=== PATIENT | female | born 1995 | race Hispanic/Latino ===

== ENCOUNTER 2022-05-22 09:08 | Inpatient (IN) | payer OTHER ==
[~2022-05-22] VITALS: Ht 154.9 cm; Wt 78.7 kg
[2022-05-22 09:25] LABS: BASOPHILS % (AUTO) 0.3 % (0.0-5.0); EOSINOPHILS % (AUTO) 0.4 % (0.0-8.0); HEMATOCRIT 35.6 % (36-48); LYMPHOCYTES % (AUTO) 21.8 % (21.0-51.0); MEAN CORPUSCULAR HEMOGLOBIN 31.9 pg (27.0-33.0); MEAN CORPUSCULAR HGB CONC 34.3 g/dL (32.0-36.0); MEAN CORPUSCULAR VOLUME 93.2 fL (79-99); MONOCYTES % (AUTO) 3.5 % (3.0-13.0); NEUTROPHILS % (AUTO) 73.6 % (40.0-77.0); PLATELET COUNT (AUTO) 254 K/uL (130-400); RED BLOOD CELL COUNT(AUTO) 3.82 MIL/uL (4.00-5.50); RED CELL DISTRIBUTION WIDTH 12.6 % (11.0-15.5); WHITE BLOOD COUNT (AUTO) 11.4 K/uL (4.8-10.8)
[2022-05-22 09:38] LABS: ALBUMIN 3.8 g/dL (3.5-5.0); BILIRUBIN,TOTAL 0.2 mg/dL (0.2-1.0); CREATININE 0.7 mg/dL (0.5-1.5); POTASSIUM 3.8 mmol/L (3.5-5.1); TOTAL PROTEIN, SERUM 8.2 g/dL (6.0-8.3)
[2022-05-22] MEDS ORDERED: KETOROLAC 30MG VIAL (30MG/ML) IVP ONE (10:00)
[2022-05-22] MEDS ORDERED: ZOSYN 3.375GM +NS 50ML IV ONE (10:30)
[2022-05-22] MEDS ORDERED: ONDANSETRON 4MG INJ IVP PRN (11:00)
[2022-05-22] MEDS ORDERED: KETOROLAC 15MG/ML VIAL (15MG/ML) IM PRN (11:00)
[2022-05-22] MEDS ORDERED: ACETAMINOPHEN 325 MG TAB PO PRN (11:00)
[2022-05-22] MEDS ORDERED: HYDROMORPHONE 0.5 MG SYG (0.5MG/0.5ML) IVP PRN (11:00)
[2022-05-22 11:15] LABS: HEMOGLOBIN A1C 5.8 % (4.0-6.0)
[2022-05-22] MEDS: PANTOPRAZOLE 40 MG/VIAL IVP SCH (11:57)
[2022-05-22 12:00] LABS: INR 0.94 (0.85-1.15); PROTHROMBIN TIME 10.3 SEC (9.6-11.6)
[2022-05-22 12:01] LABS: PARTIAL THROMBOPLASTIN TIME 26.1 SEC (26.3-35.5)
[2022-05-22] MEDS ORDERED: ZOSYN 3.375GM +NS 50ML IV SCH (14:00)
[2022-05-22 14:06] VITALS: BP 125/75
[2022-05-22] MEDS: LACTATED RINGERS 1000ML 1,000 ML IV SCH (15:45)
[2022-05-22 16:33] VITALS: BP 113/63
[2022-05-22] MEDS: ZOSYN 3.375GM +NS 50ML IV SCH (18:51)
[2022-05-22 19:16] VITALS: BP 117/73
[2022-05-22 21:55] LABS: APPEARANCE,URINE CLEAR (CLEAR); BILIRUBIN,URINE NEGATIVE (NEGATIVE); COLOR,URINE YELLOW (YELLOW); GLUCOSE, URINE (UA) NEGATIVE (NEGATIVE); KETONES,URINE NEGATIVE (NEGATIVE); LEUKOCYTE ESTERASE ,URINE NEGATIVE (NEGATIVE); NITRATE,URINE NEGATIVE (NEGATIVE); OCCULT BLOOD,URINE NEGATIVE (NEGATIVE); PROTEIN,URINE NEGATIVE (NEGATIVE)
[2022-05-22 21:59] LABS: HCG,QUAL RESULT NEGATIVE (NEGATIVE)
[2022-05-22 22:02] LABS: BACTERIA,URINE Few /HPF (None Seen); RBC,URINE 0-1 /HPF (0-1); WBC,URINE 0-1 /HPF (0-1)
[2022-05-22 22:03] LABS: AMORPHOUS SEDIMENT,UR Few /LPF (None Seen); SQUAMOUS EPITHELIAL CELL,UR Moderate /HPF (0-2)
[2022-05-22 23:06] VITALS: BP 112/57
[2022-05-23] VITALS (29 sets, daily range): BP systolic 87–141; BP diastolic 54–79
[2022-05-23] MEDS: ZOSYN 3.375GM +NS 50ML IV SCH ×4 (02:57→22:37)
[2022-05-23] MEDS: LACTATED RINGERS 1000ML 1,000 ML IV SCH ×2 (02:58→22:38)
[2022-05-23] MEDS: KETOROLAC 15MG/ML VIAL (15MG/ML) IV PRN (03:06)
[2022-05-23 05:32] LABS: BASOPHILS % (AUTO) 0.3 % (0.0-5.0); HEMATOCRIT 34.7 % (36-48); LYMPHOCYTES % (AUTO) 32.6 % (21.0-51.0); MEAN CORPUSCULAR HGB CONC 32.9 g/dL (32.0-36.0); MEAN CORPUSCULAR VOLUME 94.3 fL (79-99); MONOCYTES % (AUTO) 6.2 % (3.0-13.0); NEUTROPHILS % (AUTO) 59.5 % (40.0-77.0); PLATELET COUNT (AUTO) 233 K/uL (130-400); RED BLOOD CELL COUNT(AUTO) 3.68 MIL/uL (4.00-5.50); RED CELL DISTRIBUTION WIDTH 12.8 % (11.0-15.5); WHITE BLOOD COUNT (AUTO) 9.9 K/uL (4.8-10.8)
[2022-05-23 06:02] LABS: ALBUMIN 3.2 g/dL (3.5-5.0); BILIRUBIN,TOTAL 0.6 mg/dL (0.2-1.0); CREATININE 0.7 mg/dL (0.5-1.5); MAGNESIUM 1.6 mg/dL (1.80-2.40); POTASSIUM 3.9 mmol/L (3.5-5.1); TOTAL PROTEIN, SERUM 7.2 g/dL (6.0-8.3)
[2022-05-23] MEDS: PANTOPRAZOLE 40 MG/VIAL IVP SCH (09:28)
[2022-05-23] MEDS ORDERED: BUPIVACAINE/PF 0.5% 30ML VIAL ONE (12:28)
[2022-05-23] MEDS ORDERED: DEXAMETHASONE SOD PHOSPHATE 10MG/ML 1ML VIAL ONE (12:30)
[2022-05-23] MEDS ORDERED: SUCCINYLCHOLINE 200MG/10ML SYR ONE (12:30)
[2022-05-23] MEDS ORDERED: LIDOCAINE PF 100MG/5ML (2%) SYRINGE 5ML ONE (12:30)
[2022-05-23] MEDS ORDERED: MIDAZOLAM HCL 1 MG/ML 2ML VIAL ONE (12:31)
[2022-05-23] MEDS ORDERED: ROCURONIUM 10MG/1ML SYR 10 MG/ML ML ONE (12:31)
[2022-05-23] MEDS ORDERED: ONDANSETRON 4MG INJ ONE ×2 (12:31→13:22)
[2022-05-23] MEDS ORDERED: PROPOFOL 10 MG/ML 20ML VIAL IV ONE (12:31)
[2022-05-23] MEDS ORDERED: NEOSTIGMINE 5MG/5ML SYR IV ONE (12:31)
[2022-05-23] MEDS ORDERED: GLYCOPYRROLATE 1 MG/5 ML SYRINGE ONE (12:31)
[2022-05-23] MEDS ORDERED: FENTANYL CITRATE PF 50 MCG/1 ML 2ML VIAL ONE ×2 (12:31→12:57)
[2022-05-23] MEDS ORDERED: BUPIVACAINE/PF 0.5% 30ML VIAL INJ ONE (12:41)
[2022-05-23] MEDS ORDERED: ZOSYN 3.375GM +NS 50ML IV ONE (12:42)
[2022-05-23] MEDS ORDERED: MEPERIDINE-PF 25 MG/ML SYG ONE (13:48)
[2022-05-23] MEDS ORDERED: KETOROLAC 30MG VIAL (30MG/ML) ONE (14:21)
[2022-05-23] MEDS ORDERED: KETOROLAC 30MG VIAL (30MG/ML) IVP PRN (20:30)
[2022-05-23] MEDS ORDERED: SIMETHICONE 80 MG TAB.CHEW ONE (21:18)
[2022-05-23] MEDS ORDERED: MAG/ALUM/SIMETH 30 ML UDCUP ONE (21:21)
[2022-05-23] MEDS ORDERED: MAG/ALUM/SIMETH 30 ML UDCUP PO PRN (21:30)
[2022-05-23] MEDS: 0.9%NACL 1000ML 1,000 ML IV SCH (21:30)
[2022-05-24 00:01] VITALS: BP 97/63
[2022-05-24] MEDS: MORPHINE 2 MG SYG IVP PRN ×2 (01:18→14:27)
[2022-05-24 03:15] VITALS: BP 95/58
[2022-05-24 05:03] LABS: MEAN CORPUSCULAR HEMOGLOBIN 32.4 pg (27.0-33.0); MEAN CORPUSCULAR VOLUME 95.2 fL (79-99); RED BLOOD CELL COUNT(AUTO) 2.1 MIL/uL (4.00-5.50); RED CELL DISTRIBUTION WIDTH 12.9 % (11.0-15.5)
[2022-05-24 05:19] LABS: ALBUMIN 2.3 g/dL (3.5-5.0); BILIRUBIN,TOTAL 0.5 mg/dL (0.2-1.0); CREATININE 0.6 mg/dL (0.5-1.5); TOTAL PROTEIN, SERUM 5.6 g/dL (6.0-8.3)
[2022-05-24] MEDS ORDERED: 0.9%NACL 1000ML 1,000 ML IV ONE (06:00)
[2022-05-24] MEDS: ZOSYN 3.375GM +NS 50ML IV SCH ×2 (06:13→19:50)
[2022-05-24 07:30] VITALS: BP 106/62
[2022-05-24] MEDS: LACTATED RINGERS 1000ML 1,000 ML IV SCH ×2 (07:30→19:53)
[2022-05-24] MEDS: PANTOPRAZOLE 40 MG/VIAL IVP SCH (09:01)
[2022-05-24 14:58] LABS: HEMATOCRIT 29.2 % (36-48)
[2022-05-24 15:08] LABS: INR 1.1 (0.85-1.15); PROTHROMBIN TIME 11.9 SEC (9.6-11.6)
[2022-05-24 15:09] LABS: PARTIAL THROMBOPLASTIN TIME 23.1 SEC (26.3-35.5)
[2022-05-24 16:38] VITALS: BP 113/64
[2022-05-24 19:00] VITALS: BP 110/65
[2022-05-24] MEDS: KETOROLAC 15MG/ML VIAL (15MG/ML) IV PRN (19:50)
[2022-05-24] MEDS: 0.9%NACL 1000ML 1,000 ML IV SCH (19:53)
[2022-05-24 21:08] LABS: HEMATOCRIT 30.1 % (36-48)
[2022-05-24 23:53] VITALS: BP 126/73
[2022-05-25] MEDS: ZOSYN 3.375GM +NS 50ML IV SCH ×2 (03:05→12:21)
[2022-05-25 04:00] VITALS: BP 128/81
[2022-05-25 04:20] LABS: HEMATOCRIT 29.7 % (36-48); MEAN CORPUSCULAR HEMOGLOBIN 30.1 pg (27.0-33.0); MEAN CORPUSCULAR HGB CONC 33.3 g/dL (32.0-36.0); MEAN CORPUSCULAR VOLUME 90.3 fL (79-99); RED BLOOD CELL COUNT(AUTO) 3.29 MIL/uL (4.00-5.50); RED CELL DISTRIBUTION WIDTH 14.9 % (11.0-15.5); WHITE BLOOD COUNT (AUTO) 9.2 K/uL (4.8-10.8)
[2022-05-25 04:40] LABS: CREATININE 0.6 mg/dL (0.5-1.5); POTASSIUM 3.8 mmol/L (3.5-5.1)
[2022-05-25 07:47] VITALS: BP 117/77
[2022-05-25] MEDS: KETOROLAC 15MG/ML VIAL (15MG/ML) IV PRN (08:51)
[2022-05-25] MEDS: LACTATED RINGERS 1000ML 1,000 ML IV SCH (08:59)
[2022-05-25 11:06] VITALS: BP 120/64
[2022-05-25] MEDS: PANTOPRAZOLE 40 MG/VIAL IVP SCH (12:21)
== END 2022-05-25 14:45 | disposition home or self-care (01) | DRG 769 ==
LOC: EDH 09:08 → EDHIP 09:09 → WSH 14:06 → 4BH 05-24 12:15
PROVIDERS: ADMIT Hospitalist; ATTEND Hospitalist
PROC: 0FT44ZZ Resection of Gallbladder, Percutaneous Endoscopic Approach (ICD-10-PCS; principal; 2022-05-23 12:45)
DX: O99.63 Diseases of the digestive system complicating the puerperium (principal); D62 Acute posthemorrhagic anemia; Z20.822 Contact with and (suspected) exposure to COVID-19; Z83.3 Family history of diabetes mellitus; Z82.49 Family history of ischemic heart disease and other diseases of the circulatory system; K75.9 Inflammatory liver disease, unspecified; Z80.41 Family history of malignant neoplasm of ovary; K82.8 Other specified diseases of gallbladder; O90.89 Other complications of the puerperium, not elsewhere classified; O90.81 Anemia of the puerperium; O25.3 Malnutrition in the puerperium
CPT/HCPCS: 36415; 76705; 80048; 80053; 81001; 81003; 81025; 83036; 83605; 83690; 83735; 84145; 85014; 85018; 85025; 85027; 85610; 85651; 85730; 86140; 86850; 86900; 86901; 86923; 87635; 87804; C9113; G0378; J0330; J1100; J1170; J1885; J2001; J2175; J2250; J2405; J2543; J2704; J2710; J3010; J3490; J7030; J7120; P9016

== ENCOUNTER 2024-06-09 23:04 | Emergency (ER) | payer OTHER ==
[~2024-06-09] VITALS: Ht 154.9 cm; Wt 78.5 kg
[~2024-06-09 23:04] MED LIST: MAGN296S73 PO
[2024-06-10 00:10] LABS: APPEARANCE,URINE CLEAR (CLEAR); BILIRUBIN,URINE NEGATIVE (NEGATIVE); COLOR,URINE LIGHT-YELLOW (YELLOW); GLUCOSE, URINE (UA) NEGATIVE (NEGATIVE); KETONES,URINE NEGATIVE (NEGATIVE); LEUKOCYTE ESTERASE ,URINE NEGATIVE Leu/uL (NEGATIVE); NITRATE,URINE NEGATIVE (NEGATIVE); OCCULT BLOOD,URINE NEGATIVE (NEGATIVE); PH,URINE 6.5 (5.0-8.0); PROTEIN,URINE NEGATIVE (NEGATIVE); UROBILINOGEN,URINE 0.2 mg/dL (0.2-1.0)
[2024-06-10 00:13] LABS: HCG,QUALITATIVE URINE NEGATIVE (NEGATIVE)
[2024-06-10 00:14] LABS: ADD UA MICROSCOPIC NO
[2024-06-10 00:24] LABS: CREATININE 0.7 mg/dL (0.5-1.0); POTASSIUM 3.8 mmol/L (3.5-5.1)
[2024-06-10 00:28] LABS: ALBUMIN 3.7 g/dL (3.5-5.0); BILIRUBIN,TOTAL 0.3 mg/dL (0.2-1.0); TOTAL PROTEIN, SERUM 7.9 g/dL (6.0-8.3)
[2024-06-10] MEDS: 0.9%NACL 1000ML 1,000 ML IV ONE (00:30)
[2024-06-10] MEDS: KETOROLAC 30MG VIAL (30MG/ML) IVP ONE (00:30)
[2024-06-10 00:33] LABS: BASOPHILS # (AUTO) 0.03 K/uL (0.00-0.20); BASOPHILS % (AUTO) 0.3 % (0.0-5.0); EOSINOPHILS # (AUTO) 0.13 K/uL (0.00-0.70); EOSINOPHILS % (AUTO) 1.5 % (0.0-8.0); HEMATOCRIT 36.4 % (36-48); IMMATURE GRANULOCYTE ABSOLUTE 0.03 K/uL (0-1); LYMPHOCYTES # (AUTO) 3.9 K/uL (1.0-4.8); MEAN CORPUSCULAR HEMOGLOBIN 34.1 pg (27.0-33.0); MEAN CORPUSCULAR HGB CONC 34.6 g/dL (32.0-36.0); MEAN CORPUSCULAR VOLUME 98.6 fL (79-99); MONOCYTES # (AUTO) 0.4 K/uL (0.1-1.0); MONOCYTES % (AUTO) 4.7 % (3.0-13.0); NEUTROPHILS # (AUTO) 4.2 K/uL (1.8-7.7); NEUTROPHILS % (AUTO) 48.2 % (40.0-77.0); PLATELET COUNT (AUTO) 250 K/uL (130-400); RED BLOOD CELL COUNT(AUTO) 3.69 MIL/uL (4.00-5.50); RED CELL DISTRIBUTION WIDTH 11.9 % (11.0-15.5); WHITE BLOOD COUNT (AUTO) 8.7 K/uL (4.8-10.8)
[2024-06-10 03:49] VITALS: BP 115/65; PULSE 67; RESP 16; O2SAT 100
== END 2024-06-10 03:54 | disposition home or self-care (01) ==
LOC: EDH 23:04
DX: R10.9 Unspecified abdominal pain (principal); M54.9 Dorsalgia, unspecified; Z98.890 Other specified postprocedural states; Z90.49 Acquired absence of other specified parts of digestive tract
CPT/HCPCS: 36415; 74176; 80053; 81003; 81025; 83690; 85025